=== PATIENT | male | born 1980 ===

== ENCOUNTER 2018-11-21 07:58 | Day surgery (SDC) | payer OTHER ==
--- NOTE | 2018-11-19 20:44 | HP ---
CC: Dr. Villanueva * ADMITTING HISTORY AND PHYSICAL: DATE OF ADMISSION: 11/21/18 ADMITTING DIAGNOSIS: Elective sterilization. PLANNED PROCEDURE: Bilateral vasectomy with IV sedation. SURGEON: Dr. Lynch. HISTORY OF PRESENT ILLNESS: Dmitriy Goodson is a 37-year-old gentleman, who is interested in a vasectomy and would like to have it done with intravenous sedation. He is and has 2 children, and his is expecting the third child in February and they both would like to proceed with a method of permanent contraception. PAST MEDICAL HISTORY: Unremarkable. PAST SURGICAL HISTORY: Significant for a surgery for right leg fracture and circumcision at age 11. MEDICATIONS ON ADMISSION: None. ALLERGIES: No known drug allergies. FAMILY HISTORY: Negative for bladder or prostate cancer. SOCIAL HISTORY: Smoking history: He is a nonsmoker. REVIEW OF SYSTEMS: He is otherwise in excellent health. There is no history of diabetes mellitus or any other major systemic illness. He denies any chest pain or shortness of breath. PHYSICAL EXAMINATION GENERAL: Reveals a pleasant, healthy-appearing young gentleman. VITAL SIGNS: Blood pressure 138/72, pulse 74 per minute, temperature 98, oxygen saturation 98% on room air. LUNGS: Clear bilaterally. CARDIOVASCULAR EXAM: Regular rate and rhythm. S1, S2. ABDOMEN: Soft without masses. GENITOURINARY: Testicles are descended bilaterally and are normal without masses. IMPRESSION: I discussed the procedure of vasectomy in detail with Mr. Goodson including possible risks of bleeding, infection, testicular pain, and failure of vasectomy. PLAN: Planned procedure is bilateral vasectomy with intravenous sedation. [id number]/[facility] #: [id number] [facility]
[~2018-11-21 07:58] MED LIST: Buffered Lidocaine 1% SYRIN* 1 ML/SYRINGE INTRADERM ONE; Lactated Ringers 1000 ML Bag* 1,000 ML IV SCH
[2018-11-21] MEDS ORDERED: cefTRIAXone(*) 2 GM ADDV.VIAL IVPB ONE (08:24)
[2018-11-21] MEDS ORDERED: Buffered Lidocaine 1% SYRIN* 1 ML/SYRINGE INTRADERM ONE (08:24)
[2018-11-21] MEDS ORDERED: Propofol* 10 MG/ML 20 ML BTL ONE (09:10)
[2018-11-21] MEDS ORDERED: Lidocaine 2% PF * 5 ML VIAL ONE (09:10)
[2018-11-21] MEDS ORDERED: Midazolam* 1 MG/ML 2 ML VIAL (2 MG) ONE (09:11)
[2018-11-21] MEDS ORDERED: Lidocaine 1% INJ* 10 MG/ML 30 ML SDV ONE (09:34)
[2018-11-21] MEDS ORDERED: Naloxone* 0.4 MG/ML 1 ML VIAL IV PRN (10:04)
[2018-11-21] MEDS ORDERED: Ondansetron INJ* 2 MG/ML VIAL IV PRN (10:04)
[2018-11-21] MEDS ORDERED: Acetaminophen TAB* 325 MG PO PRN (10:04)
[2018-11-21] MEDS ORDERED: KETAMINE HCL* 50 MG/ML 10 ML VIAL ONE (10:09)
[2018-11-21] MEDS ORDERED: Acetaminophen TAB* 325 MG ONE (11:16)
[2018-11-21 11:19] VITALS: BP 118/80
--- NOTE | 2018-11-21 11:25 | OP ---
CC: Dr. Gus Villanueva * DATE OF OPERATION: 11/21/18 - [facility] DATE OF : 82 SURGEON: Ben Lynch MD. ANESTHESIOLOGIST: Dr. Mack. ANESTHESIA: Intravenous sedation. PRE-OP DIAGNOSIS: Elective sterilization. POST-OP DIAGNOSIS: Elective sterilization. OPERATIVE PROCEDURE: Bilateral vasectomy with intravenous sedation. COMPLICATIONS: None. BLOOD LOSS: Minimal. SPECIMEN: Right and left vas deferens. INDICATIONS: Sheng Goodson is a 37-year-old gentleman who desires bilateral vasectomy for elective sterilization. I have discussed the procedure in detail including possible risks of bleeding, infection, testicular pain, and failure of vasectomy. He appears to understand and wishes to proceed as planned. DESCRIPTION OF PROCEDURE: After induction of intravenous sedation, external genitalia were prepped and draped in the usual sterile fashion. The vas deferens on the left side was identified and a small incision was made after infiltration with 1% Xylocaine local anesthetic. The vas was delivered through the incision and a segment about 1.5 to 2 cm long was excised. The divided ends were controlled using Hemoclips and were then allowed to drop back into their normal anatomic position. The skin and subcutaneous tissue was approximated using interrupted sutures of 4-0 chromic. An identical procedure was carried out on the right side. Once again, a segment of the vas was excised and the ends were controlled using Hemoclips. All sponge and needle counts were correct. Dry sterile dressing was applied and the patient was transferred back to the recovery area in stable condition. [id number]/[facility] #: [id number] [facility]
== END 2018-11-21 12:54 | disposition home or self-care (01) ==
LOC: OR 07:58
PROVIDERS: ATTEND Urology
DX: Z30.2 Encounter for sterilization (principal)
CPT/HCPCS: 88302; A9270-GY; J0696; J2250; J2704